=== PATIENT | female | born 1945 | race Caucasian/White ===

== ENCOUNTER 2017-10-27 10:43 | Day surgery (SDC) | payer MEDICARE ==
[~2017-10-27] VITALS: Ht 157.5 cm; Wt 127.3 kg
[2017-10-27] MEDS ORDERED: LEVOTHYROXINE150 MCG PO (12:01)
[2017-10-27] MEDS ORDERED: LOVENOX150 MG/ML SC (12:01)
[2017-10-27] MEDS ORDERED: FUROSEMIDE20 MG PO (12:02)
[2017-10-27] MEDS ORDERED: NORVASC10 MG PO (12:02)
[2017-10-27] MEDS ORDERED: GLIMEPIRIDE1 MG PO (12:03)
[2017-10-27] MEDS ORDERED: TIROSINT137 MCG PO (12:03)
[2017-10-27] MEDS ORDERED: KLOR-CON 1010 MEQ PO (12:03)
[2017-10-27] MEDS ORDERED: COUMADIN5 MG PO (12:04)
[2017-10-27] MEDS ORDERED: OMEPRAZOLE20 M1 PO (12:04)
[2017-10-27] MEDS ORDERED: ZOCOR20 MG PO (12:04)
[2017-10-27 12:11] VITALS: BP 161/71; Ht 157.5 cm; Wt 127.3 kg
[2017-10-27 12:15] LABS: BASOPHILS 0.2 % (0-2); EOSINOPHILS 1.9 % (0-7); HEMATOCRIT 35.9 % (36.0-48.0); HEMOGLOBIN 11.2 g/dL (12-16); IMMATURE GRANULOCYTES 0.6 % (0-5); LYMPHOCYTES 16.7 % (15-50); MCH 28.3 pg (26.0-34.0); MCHC 31.2 g/dL (31.0-37.0); MCV 90.7 fL (80.0-100.0); MEAN PLATELET VOLUME 10.9 fL (7.4-10.4); NEUTROPHILS 72.6 % (40-80); PLATELET COUNT 176 10x3/uL (130-400); RBC 3.96 10x6/uL (4.00-5.40); RDW 16.5 % (11.5-14.5); WBC 5.4 10x3/uL (4.8-10.8)
[2017-10-27 12:16] LABS: PROTIME 12.8 SECONDS (11.6-15.0)
[2017-10-27 12:27] LABS: ANION GAP 12.1 mmol/L (8-16); CALCIUM 9.4 mg/dL (8.5-10.1); CARBON DIOXIDE 28.5 mmol/L (21.0-32.0); CREATININE - SERUM 0.9 mg/dL (0.6-1.3); POTASSIUM - SERUM 3.6 mmol/L (3.5-5.1)
--- NOTE | 2017-10-27 13:32 | NUR ---
ASCENDING POLYP X 1 WITH HEMOCLIP.
--- NOTE | 2017-10-27 16:32 | NUR ---
1445--IV DC'D, PT UP TO DRESS. URIEL GIBSON 1500--DISCHARGE INSTRUCTIONS GIVEN, PT VERBALIZES UNDERSTANDING. PT OFF UNIT VIA WC. URIEL GIBSON
--- NOTE | 2017-10-27 17:54 | OP ---
PATIENT NAME: MENG XIE MEDICAL RECORD: [id number] :43 [facility] DATE: SURGEON: ROBERT SWANSON DO DATE OF OPERATION: 10/27/2017 PROCEDURE: Colonoscopy with polypectomy. INDICATIONS FOR PROCEDURE: Diverticular disease, history of colon polyps, screening for colorectal cancer. SCOPE: [employer] video pediatric colonoscope. MEDICATIONS: Propofol 450 mg IV per anesthesia. WITHDRAWAL TIME: 16 minutes. ESTIMATED BLOOD LOSS: Minimal. COMPLICATIONS: None. FINDINGS: Informed consent was given. The patient was made comfortable with the above medication. After reaching an adequate level of sedation by slow IV push, the patient was placed on her left side. A digital rectal examination was performed and was normal. The endoscope was then advanced under direct visualization through the rectum to the cecum with visualization of the appendiceal orifice and ileocecal valve. The scope was slowly withdrawn and mucosa was carefully examined. The prep quality was good. In the cecum, there were 3 benign-appearing sessile polyps, which measured approximately 3-4 mm in size. They were all removed using hot forceps in 1 piece and completely retrieved. In the ascending colon, there were two benign-appearing sessile polyps, which ranged from 3-4 mm in size. They were both removed using hot forceps. One of these polyps had some residual bleeding, so a single endoclip was placed successfully to stop the bleeding. This maneuver was successful. There was evidence of some diverticula in the left side of the colon near the anastomosis from the previous colon resection. The anastomosis appeared healthy and normal. A single polyp was identified in conjunction with the ileocecal valve. This has been biopsied in the past and confirmed to be lipomatous, so no biopsies were taken. Retroflexion was performed in the rectum with visualization of small nonbleeding internal hemorrhoids. The endoscope was then withdrawn from the patient. The patient tolerated the procedure well and there were no complications. IMPRESSIONS: 1. Five separate polyps as described above removed using hot forceps. One of these sites had some residual bleeding, so a single endoclip was placed for hemostasis successfully. 2. Diverticulosis of the left side of the colon near the anastomotic region. 3. Evidence of prior intervention including a partial resection due to diverticular disease. 4. Lipoma involving the ileocecal valve. 5. Small nonbleeding internal hemorrhoids. PLAN AND RECOMMENDATIONS: 1. Discharge home when recovery parameters are met. 2. High fiber diet. OPERATIVE REPORT [id number] MENG XIE 3. Continue current medications. 4. No anti-inflammatories for 14 days. 5. Okay to resume Coumadin. 6. Recall colonoscopy in 3 years for continued surveillance of polyps. TRANSINT:[id number] Voice Confirmation ID: [id number] DOCUMENT ID: [id number] ROBERT SWANSON DO at 1754 CC: [id number] DICTATION DATE: 10/27/17 1349 TRACK CAR OPERATOR: 10/27/[address] [facility] 10/27/17 [facility] [address] [place] [address]
== END 2017-10-27 15:00 | disposition home or self-care (01) ==
LOC: D.OPS 10:43
PROVIDERS: Anesthesiology; Internal Medicine Gastroenterology
DX: K57.30 Diverticulosis of large intestine without perforation or abscess without bleeding (principal); K63.5 Polyp of colon; D12.2 Benign neoplasm of ascending colon; D17.79 Benign lipomatous neoplasm of other sites; K64.8 Other hemorrhoids; Z01.812 Encounter for preprocedural laboratory examination

== ENCOUNTER 2019-03-15 07:11 | Inpatient (IN) | payer MEDICARE ==
[2019-03-15] VITALS (14 sets, daily range): BP systolic 118–140; BP diastolic 61–83; BMI 53.2; BMI 54.1
[~2019-03-15] VITALS: Ht 157.5 cm; Wt 143.0 kg
--- NOTE | ~2019-03-15 | HEMODYNAMI ---
PATIENT:MENG XIE MEDICAL RECORD: [id number] : 43 [id number] ADMISSION DATE: 03/15/19 Generatedon:03/16/201914:08 Patient name: MENG XIE Patient #: [id number] SSN: : 1945 Date of study: 03/16/2019 Page: Of Hemodynamic Procedure Report Patient Data Patient Demographics Procedure consent was obtained First Name: MENG Gender: Female Last Name: ANNE-MARIE : 1945 Middle Initial: M Age: 73 year(s) Patient #: [id number] Race: Unknown Additional ID: [id number] Contact details Address: [address] [place] [address] State: [place] City: [place] Zip code: [address] Admission Admission Data Admission Date: 03/15/2019 Admission Time: 11:23 Room #: [facility] Height (in.): 62 BSA: 2.24 (m2) Height (cm.): 157.48 BMI: 53.04 (kg/m2) Weight (lbs.): 290 Weight (kg.): 131.54 Procedure Procedure Types Cath Procedure Peripheral Cath Diagnostic Procedure Miscellaneous Procedure Description Procedure Date Procedure Date: 03/16/2019 Procedure Start Time: 13:46 Procedure Staff Name Function Victoriano Zhang MD Performing Physician Sandro Coulter RT Monitor Sujata David RN Nurse Angel Frost RT Scrub Procedure Medications Medication Administration Route Dosage Heparin Flush Bag added to field 1 bags (1000units/500ml NS) Lidocaine 1% added to field 20 Hemodynamics Rest BSA: 2.24 (m2) O2 Consumption: Estimated: 206.29 (ml/min) O2 Consumption indexed : Estimated:92.09 (ml/min/m) Heart Rate: 73 (bpm) Snapshots Pre Cath Intra NCS Post Cath Vital Signs Time Heart Resp SPO2 etCO2 NIBP (mmHg) Rhythm Pain Sedation Rate (ipm) (%) (mmHg) Status Level (bpm) 13:40:04 100 0 158/88(108) NSR 0 (11) 10(A) , No pain 13:45:03 71 100 0 Measuring NSR 0 (11) 10(A) , No pain 13:46:27 70 16 100 0 Time NSR 0 (11) 10(A) Exceeded , No pain 13:50:16 74 8 100 0 90/53(79) NSR 0 (11) 10(A) , No pain 13:53:57 76 19 100 0 Time NSR 0 (11) 10(A) Exceeded , No pain 13:57:20 81 15 100 0 140/128(137) NSR 0 (11) 10(A) , No pain 14:00:08 77 15 100 0 189/83(138) NSR 0 (11) 10(A) , No pain 14:04:08 16 0 No Cuff NSR 0 (11) 10(A) , No pain Medications Time Medication Route Dose Verified Delivered Reason Notes Effe ctiveness by by 13:48:24 Heparin Flush added 1 M J Long M J Long used for Bag to bags MD GRANADO procedure (1000units/500ml field NS) 13:48:41 Lidocaine 1% added 20ml M J Long M J Long for local to vial MD GRANADO anesthetic field Procedure Log Time Note 13:00:45 Patient Height : 62 inches 13:00:45 Patient Weight : 290 lbs 13:31:47 Sujata David RN sent for patient. Start room use. 13:32:01 Time tracking: Regular hours (M-F 7:00 - 5:00) 13:32:13 Plan of Care:Hemodynamics will remain stable., Cardiac rhythm will remain stable., Comfort level will be maintained., Respiratory function will remain adequate., Patient/ family verbilizes understanding of procedure., Procedure tolerated without complication., Recovers from procedure without complications.. 13:32:24 Patient received from ICU to IR Alert and oriented. Tansferred to table in Supine position. 13:32:28 Correct patient and procedure confirmed by team. 13:32:39 Signed procedure consent form obtained from spouse. 13:32:43 ECG and BP/O2 sat monitors applied to patient. 13:32:47 Full Disclosure recording started 13:32:49 - 13:32:57 H&P Date Dictated: 03/16/2019 Within 30 days and on chart.. 13:33:36 Unable to provide pre-op teaching due to educational barrier. patient o n vent dipravan drip 13:33:56 pt unable to answer any preprocedure diagnosis 13:34:21 Right groin area was prepped with chlora-prep and draped in sterile fashion 13:34:23 Alarms reviewed by R. N. 13:34:23 Sharps counted by scrub and verified by R.N. 13:38:39 Vital chart was started 13:38:40 Baseline sample Acquired. 13:46:06 Physician arrived 13:46:07 --------ALL STOP TIME OUT------ 13:46:07 Final Timeout: patient, procedure, and site verified with staff and physician. All members of the team are in agreement. 13:46:10 Right groin site verified by team. 13:46:20 Sedation plan: Local Anesthetic Medication:Lidocaine 13:46:24 Fire Safety Assessment: A--An alcohol-based skin anteseptic being used preoperatively., C--Open oxygen or nitrous oxide is being used. 13:46:37 Procedure started. 13:46:45 Local anesthetic to right femoral artery with Lidocaine 1% by Victoriano Zhang MD.INITIAL ACCESS ONLY 13:48:07 Baseline sample Acquired. 13:48:17 JACKSON 180cm wire (L95095) opened to sterile field. 13:48:24 Heparin Flush Bag (1000units/500ml NS) 1 bags added to field was administered by Victoriano Zhang MD; used for procedure; 13:48:41 Lidocaine 1% 20ml vial added to field was administered by Victoriano Zhang MD; for local anesthetic; 13:52:59 Use device set IR Diagnostic 13:53:01 EXOSEAL 5Fr (EX500) opened to sterile field. 13:53:03 Sterile Angiographic Pack opened to sterile field. 13:53:03 Bag Decanter (2002S) opened to sterile field. 13:53:04 Tegaderm 4 x 4 (1626W) opened to sterile field. 13:53:11 SHEATH 5FR Sewell (FOH357) opened to sterile field. 13:53:22 Procedure ended.(Physican Out) 14:04:02 Sharps counted by scrub and verified by R.N. 14:04:03 Insertion/operative site no bleeding no hematoma. 14:04:07 Post-op/insertion site Right Femoral artery dressed using a 4 x 4 and Tegaderm. 14:04:11 Post right femoral artery:stable 14:04:14 Procedure and supply charges have been captured, reviewed, submitted an d are correct. 14:07:46 Report given to ICU. 14:07:49 Patient transfered to ICU with Bed. 14:08:15 Vital chart was stopped Device Usage Item Name Manufacture Quantity Catalog Hospital Part Current Minimal Lot# / Number Charge Number Stock Stock Serial# Code JACKSON 180cm Cook Medical 1 [id number] [id number] 5 wire ([id number]) EXOSEAL 5Fr Cardinal 1 EX500 401909 314015 713372 10 [id number] (EX500) Health Sterile Cardinal 1 [id number] 687850 695852 5 Angiographic Health Pack Bag Decanter Microtek 1 2002S 929144 69485 981095 5 (2001S) Medical Inc. Tegaderm 4 x 3M 1 1626W 346035 624467 094902 5 4 (1626W) SHEATH 5FR Terumo 1 KUI943 931076 175960 024701 5 Sewell (ERP948) Signature Audit [place] Stage Time Signature Unsigned Intra-Procedure 03/16/2019 Sandro 2:08:11 PM Marylin RT (R) (CV) Signatures Monitor : Sandro Signature : Marylin RT Date : Time : [facility] [address] [place] [address]
--- NOTE | ~2019-03-15 | HEMODYNAMI ---
PATIENT:MENG XIE MEDICAL RECORD: [id number] : 41 [address] [id number] ADMISSION DATE: 03/15/19 Generatedon:03/15/201915:32 Patient name: MENG XIE Patient #: [id number] SSN: : 1945 Date of study: 03/15/2019 Page: Of Hemodynamic Procedure Report Patient Data Patient Demographics Procedure consent was obtained First Name: MENG Gender: Female Last Name: ANNE-MARIE : 1945 Middle Initial: M Age: 73 year(s) Patient #: [id number] Race: Unknown Additional ID: [id number] Contact details Address: [address] [place] [address] State: [place] City: [place] Zip code: [address] Admission Admission Data Admission Date: 03/15/2019 Admission Time: 11:23 Room #: [facility] Height (in.): 62 BSA: 2.24 (m2) Height (cm.): 157.48 BMI: 53.04 (kg/m2) Weight (lbs.): 290 Weight (kg.): 131.54 Procedure Procedure Types Cath Procedure Peripheral Cath Diagnostic Procedure Auto Driver Peripheral Procedures Abd/Extremity Visceral/Mesenteric Mesenteric Arteriogram (Abd Artery) Procedure Description Procedure Date Procedure Date: 03/15/2019 Procedure Start Time: 13:30 Procedure Staff Name Function Juan Antonio Beckett MD Performing Physician Kristy Gan RT Commercial Mortgage Broker Sujata David RN Nurse Sandro Coulter RT Scrub Angel Frost RT Scrub Procedure Data Cath Procedure Fluoroscopy Diagnostic fluoroscopy Total fluoroscopy Time: time: 27.6 min 27.6 min Diagnostic fluoroscopy Total fluoroscopy dose: dose: 5884 mGy 5884 mGy Contrast Material Contrast Material Type Amount (ml) Isovue 300 220 Isovue 300 220 Procedure Medications Medication Administration Route Dosage Heparin Flush Bag added to field 3 bags (1000units/500ml NS) Lidocaine 1% added to field 20 Benadryl I.V. 50 mg Solumedrol I.V. 125 mg Hemodynamics Rest BSA: 2.24 (m2) O2 Consumption: Estimated: 197.52 (ml/min) O2 Consumption indexed : Estimated:88.18 (ml/min/m) Heart Rate: 63 (bpm) Snapshots Pre Cath Intra NCS Post Cath Vital Signs Time Heart Resp SPO2 etCO2 NIBP (mmHg) Rhythm Pain Sedation Rate (ipm) (%) (mmHg) Status Level (bpm) 13:05:25 63 5 99 0 140/120(133) NSR 0 (11) 10(A) , No pain 13:09:34 63 37 100 0 149/87(108) NSR 0 (11) 10(A) , No pain 13:13:44 62 21 100 0 144/100(114) NSR 0 (11) 10(A) , No pain 13:17:54 62 16 100 0 148/88(117) NSR 0 (11) 10(A) , No pain 13:22:08 61 12 100 0 148/82(105) NSR 0 (11) 10(A) , No pain 13:26:22 63 9 100 0 142/82(102) NSR 0 (11) 10(A) , No pain 13:30:36 62 5 100 0 134/77(96) NSR 0 (11) 10(A) , No pain 13:34:48 63 6 100 0 136/72(106) NSR 0 (11) 10(A) , No pain 13:39:04 61 12 100 0 128/59(82) NSR 0 (11) 10(A) , No pain 13:43:14 61 100 0 124/72(91) NSR 0 (11) 10(A) , No pain 13:47:24 62 100 0 122/70(95) NSR 0 (11) 10(A) , No pain 13:51:32 62 22 100 0 117/73(86) NSR 0 (11) 10(A) , No pain 13:56:31 61 21 100 0 Measuring NSR 0 (11) 10(A) , No pain 13:57:41 62 14 100 0 163/89(139) NSR 0 (11) 10(A) , No pain 14:02:00 62 13 100 0 157/81(129) NSR 0 (11) 10(A) , No pain 14:06:19 62 12 100 0 145/77(102) NSR 0 () 10(A) , No pain 14:10:33 62 12 100 0 153/77(114) NSR 0 () 10(A) , No pain 14:14:53 64 16 100 0 149/70(119) NSR 0 (11) 10(A) , No pain 14:19:09 64 16 100 0 147/75(106) NSR 0 () 10(A) , No pain 14:23:25 64 12 100 0 157/72(103) NSR 0 () 10(A) , No pain 14:28:24 64 13 100 0 Measuring NSR 0 () 10(A) , No pain 14:28:30 64 14 100 0 143/69(98) NSR 0 () 10(A) , No pain 14:32:46 65 16 100 0 147/69(123) NSR 0 () 10(A) , No pain 14:37:06 65 14 100 0 141/60(97) NSR 0 () 10(A) , No pain 14:41:22 66 16 100 0 148/68(110) NSR 0 () 10(A) , No pain 14:45:40 66 17 100 0 140/70(107) NSR 0 () 10(A) , No pain 14:49:54 67 20 100 0 147/68(115) NSR 0 () 10(A) , No pain 14:54:12 66 16 100 0 157/65(110) NSR 0 () 10(A) , No pain 14:58:34 65 17 100 0 149/66(94) NSR 0 () 10(A) , No pain 15:02:53 65 13 100 0 150/71(118) NSR 0 () 10(A) , No pain 15:07:07 64 16 100 0 148/81(119) NSR 0 (11) 10(A) , No pain 15:11:27 63 19 100 0 154/63(117) NSR 0 (11) 10(A) , No pain 15:15:49 64 13 100 0 156/63(120) NSR 0 (11) 10(A) , No pain 15:20:11 65 16 100 0 155/65(118) NSR 0 (11) 10(A) , No pain 15:24:33 63 16 100 0 157/64(113) NSR 0 (11) 10(A) , No pain 15:28:55 63 14 100 0 150/66(115) NSR 0 (11) 10(A) , No pain Medications Time Medication Route Dose Verified Delivered Reason Notes Effe ctiveness by by 13:27:41 Heparin Flush added 3 Juan Antonio Romano used for Bag to bags Sophy Beckett MD procedure (1000units/500ml field NS) 13:27:54 Lidocaine 1% added 20ml Juan Antonio Romano for local to vial Sophy Beckett MD anesthetic field MD 13:41:28 Benadryl I.V. 50 mg Juan Antonio Ernst Per Frankie Beckett RN physician 13:42:08 Solumedrol I.V. 125 Juan Antonio Ernst Per mg Frankie Beckett RN physician Procedure Log Time Note 12:36:33 Patient Weight : 290 lbs 12:36:38 Patient Height : 62 inches 12:37:36 Use device set Radial Dx or PCI 12:37:49 Use device set IR Diagnostic 12:37:54 ACIST Syringe (14080) opened to sterile field. 12:37:55 ACIST Hand Control (54190) opened to sterile field. 12:37:56 ACIST Manifold (63985) opened to sterile field. 12:37:56 Bag Decanter (2002S) opened to sterile field. 12:37:57 Sterile Angiographic Pack opened to sterile field. 12:37:58 Tegaderm 4 x 4 (1626W) opened to sterile field. 12:47:29 DOC .035 wire (L71955) opened to sterile field. 12:47:31 SHEATH 5FR Trent (FQN339) opened to sterile field. 12:47:31 TUBING Contrast Injection High Pressure (NQE692X) opened to sterile field. 12:47:34 Micropuncture VSI 4FR kit opened to sterile field. 12:55:09 Time tracking: Regular hours (M-F 7:00 - 5:00) 12:56:39 Patient received from ICU to IR On ventilator. Tansferred to table in Supine position. 12:56:44 - 12:56:49 H&P Date Dictated: 03/15/2019 Within 30 days and on chart.. 12:57:06 Signed procedure consent form obtained from guardian. 12:58:15 - 12:58:23 ----Pre-sedation anethsthesia assessment.----patient on ventilator 13:03:06 - 13:03:40 Right groin area was prepped with chlora-prep and draped in sterile fashion 13:04:18 ECG and BP/O2 sat monitors applied to patient. 13:04:19 Vital chart was started 13:04:21 Baseline sample Acquired. 13:04:24 Full Disclosure recording started 13:04:25 - 13:26:01 Physician arrived 13:26:04 --------ALL STOP TIME OUT------ 13:26:05 Final Timeout: patient, procedure, and site verified with staff and physician. All members of the team are in agreement. 13:27:41 Heparin Flush Bag (1000units/500ml NS) 3 bags added to field was administered by Juan Antonio Beckett MD; used for procedure; 13:27:54 Lidocaine 1% 20ml vial added to field was administered by Juan Antonio Beckett MD; for local anesthetic; 13:28:51 pt on vent from icu on propofol ggt. vs stable 13:30:04 Procedure started. 13:30:10 Local anesthetic to right femoral artery with Lidocaine 1% by Juan Antonio Beckett MD.INITIAL ACCESS ONLY 13:31:09 Arterial access obtained using ultrasound guidance. 13:40:47 GLIDE CATHETER 5FR COBRA 65cm (CG502) opened to sterile field. 13:41:04 AMPLATZ Super Stiff 75cm wire ([id number]) opened to sterile field. 13:41:28 Benadryl 50 mg I.V. was administered by Sujata David RN; Per physician ; 13:42:08 Solumedrol 125 mg I.V. was administered by Sujata David RN; Per physician; 13:44:22 GLIDE WIRE ANGLE 180cm (AQ9897) opened to sterile field. 13:44:30 TORQUE DEVICE PLASTIC .038 ( TD01) opened to sterile field. 14:04:30 TRANSEND STEERABLE wire ([id number]) opened to sterile field. 14:04:32 RENEGADE STAIGHT 150CM microcatheter ([id number]) opened to sterile field. 14:12:59 COIL Vortex Katya 18 3X3 ([id number]) opened to sterile field. 14:13:41 COIL Vortex Katya 18 3X3 (H1121806918) opened to sterile field. 14:16:18 COIL Vortex Katya 18 3X3 ([id number]) opened to sterile field. 14:18:47 IDL Instant Casing Wringer Operator (ID1) opened to sterile field. 14:18:59 COIL Concerto 4mm x 10cm ([id number]) opened to sterile field. 14:22:43 COIL Concerto 5 x 20 (JL30MOBNG) opened to sterile field. 14:30:12 GLIDE WIRE GT DOUBLE ANGLE .018 (RG*SC6276EJ) opened to sterile field. 14:39:30 COIL Concerto 5 x 20 (OB56ELGER) opened to sterile field. 15:04:34 COIL Vortex Katya 18 3X3 ([id number]) opened to sterile field. 15:09:34 Cordis 5Fr Trent Destination sheath opened to sterile field. 15:15:09 SUTURE ETHILON 2-0 BLK MONO FS opened to sterile field. 15:16:03 Fluoroscopy dose: 5884 mGy 15:16:03 Flurop Dose total: 5884 15:16:24 Fluoroscopy time 27.60 minutes. 15:16:41 Contrast amount:Isovue 300 220ml. 15:16:49 Contrast amount:Isovue 300 220ml. 15:16:56 Procedure and supply charges have been captured, reviewed, submitted an d are correct. 15:20:19 Procedure ended.(Physican Out) 15:32:03 Vital chart was stopped Device Usage Item Name Manufacture Quantity Catalog Number Hospital Part Current Tx nimpr Lot# / Charge Number Stock Stock Serial# Code ACIST Syringe Acist 1 21621 950808 166547 797917 20 (65988) Medical Systems Inc ACIST Hand Acist 1 89887 837873 238557 772512 5 Control Medical (59950) Systems Inc ACIST Acist 1 93935 231186 222385 922015 5 Manifold Medical (40308) Systems Inc Bag Decanter Microtek 1 2001S 487525 27471 798757 5 (2001S) Medical Inc. Sterile Cardinal 1 [id number] 823255 940726 5 Angiographic Health Pack Tegaderm 4 x 3M 1 1626W 854877 069939 644045 5 4 (1626W) DOC .035 wire Cook Medical 1 X82118 887320 920521 5 (C29318) SHEATH 5FR Terumo 1 CGK255 990884 821044 907841 5 Trent (UQW840) TUBING Merit 1 LSW360K 007453 152443 057212 5 Contrast Medical Injection High Pressure (QBC690D) Micropuncture VSI VASCULAR 1 7266V 213855 222974 5 VSI 4FR kit SOLUTIONS GLIDE Terumo 1 CG502 819393 471942 5 CATHETER 5FR COBRA 65cm (CG502) AMPLATZ Super Boss 1 [id number] 426420 532815 555034 5 Stiff 75cm Scientific wire ([id number]) GLIDE WIRE Terumo 1 UI4976 561511 313571 280168 5 ANGLE 180cm (MA8568) TORQUE DEVICE Boss 1 TD01 624842 369617 287026 5 PLASTIC .038 Scientific ( TD01) TRANSEND Boss 1 [id number] 053040 673377 5 [id number] STEERABLE Scientific wire ([id number]) RENEGADE Boss 1 [id number] 275043 645142 5 [id number] STAIGHT 150CM Scientific microcatheter ([id number]) COIL Vortex [facility] 3 [id number] 599916 566799 5 [id number] Katya 18 [id number] 3X3 37220773 ([id number]) IDL Instant B. Fragoso 1 ID-1 [id number] 0333331 317957 5 Casing Wringer Operator (ID1) COIL Appointuito Medtronic 1 QK-6-78-HELIX 294675 881559 224993 5 [id number] 4mm x 10cm ([id number]) COIL Concerto Medtronic 1 AS-1-2-HELIX 185825 723793 909064 5 [id number] 5 x 20 ([id number]) GLIDE WIRE GT Terumo 1 RG*BQ9588FM 657371 680152 5 DOUBLE ANGLE .018 (RG*QP8088KC) Cordis 5Fr Cardinal 1 [id number] 107778 34402 455275 5 [facility] Destination sheath SUTURE Ethicon 1 664H 445150 402451 5 ETHILON 2-0 BLK MONO FS Signature Audit [place] Stage Time Signature Unsigned Intra-Procedure 03/15/2019 Kristy Gan 3:32:00 PM RT(R) [facility] [address] [place] [address]
[~2019-03-15 07:11] MED LIST: COUMADIN5 MG PO; FUROSEMIDE20 MG PO; GLIMEPIRIDE1 MG PO; KLOR-CON 1010 MEQ PO; LEVOTHYROXINE150 MCG PO; LOVENOX150 MG/ML SC; NORVASC10 MG PO; OMEPRAZOLE20 M1 PO; TIROSINT137 MCG PO; ZOCOR20 MG PO
[2019-03-15 07:27] LABS: HEMATOCRIT 41.4 % (36.0-48.0); HEMOGLOBIN 13.5 g/dL (12-16); MCHC 32.6 g/dL (31.0-37.0); MEAN PLATELET VOLUME 10.4 fL (7.4-10.4); RBC 4.5 10x6/uL (4.00-5.40); RDW 16.4 % (11.5-14.5); WBC 9.6 10x3/uL (4.8-10.8)
[2019-03-15 07:35] LABS: ANION GAP 7.8 mmol/L (8-16); CALCIUM 9.8 mg/dL (8.5-10.1); CARBON DIOXIDE 31.4 mmol/L (21.0-32.0); CREATININE - SERUM 1.1 mg/dL (0.6-1.3); POTASSIUM - SERUM 4.2 mmol/L (3.5-5.1)
[2019-03-15] MEDS ORDERED: LOPRESSOR25 MG PO (08:37)
[2019-03-15] MEDS ORDERED: COUMADIN2.5 MG PO (08:39)
[2019-03-15 12:24] LABS: BASOPHILS 0.2 % (0-2); EOSINOPHILS 0.1 % (0-7); HEMATOCRIT 37.8 % (36.0-48.0); HEMOGLOBIN 12.4 g/dL (12-16); IMMATURE GRANULOCYTES 0.3 % (0-5); LYMPHOCYTES 14.5 % (15-50); MCHC 32.8 g/dL (31.0-37.0); MCV 92.6 fL (80.0-100.0); MEAN PLATELET VOLUME 10.6 fL (7.4-10.4); MONOCYTES 6.4 % (2-11); NEUTROPHILS 78.5 % (40-80); PLATELET COUNT 208 10x3/uL (130-400); RBC 4.08 10x6/uL (4.00-5.40); RDW 16.4 % (11.5-14.5); WBC 10.3 10x3/uL (4.8-10.8)
[2019-03-15 12:31] LABS: MCH 30.5 pg (26.0-34.0)
[2019-03-15 12:32] LABS: APTT 23.9 SECONDS (22.8-39.4); INR 1.09 (0.85-1.17); PROTIME 13.6 SECONDS (11.6-15.0)
[2019-03-15 17:48] LABS: ANION GAP 12.2 mmol/L (8-16); CALCIUM 8.5 mg/dL (8.5-10.1); CREATININE - SERUM 1.1 mg/dL (0.6-1.3); POTASSIUM - SERUM 4.2 mmol/L (3.5-5.1)
[2019-03-15 17:54] LABS: BASOPHILS 0.1 % (0-2); EOSINOPHILS 0 % (0-7); HEMATOCRIT 31.1 % (36.0-48.0); HEMOGLOBIN 9.8 g/dL (12-16); IMMATURE GRANULOCYTES 0.2 % (0-5); LYMPHOCYTES 5.2 % (15-50); MCH 28.9 pg (26.0-34.0); MCHC 31.5 g/dL (31.0-37.0); MCV 91.7 fL (80.0-100.0); MEAN PLATELET VOLUME 11.1 fL (7.4-10.4); NEUTROPHILS 90.5 % (40-80); PLATELET COUNT 183 10x3/uL (130-400); RBC 3.39 10x6/uL (4.00-5.40); RDW 16.4 % (11.5-14.5); WBC 12.6 10x3/uL (4.8-10.8)
[2019-03-15 23:03] LABS: BASOPHILS 0 % (0-2); EOSINOPHILS 0 % (0-7); IMMATURE GRANULOCYTES 0.3 % (0-5); LYMPHOCYTES 5.2 % (15-50); MCH 29.6 pg (26.0-34.0); MCHC 32.4 g/dL (31.0-37.0); MCV 91.5 fL (80.0-100.0); MEAN PLATELET VOLUME 10.7 fL (7.4-10.4); MONOCYTES 2.3 % (2-11); NEUTROPHILS 92.2 % (40-80); PLATELET COUNT 161 10x3/uL (130-400); RDW 16.6 % (11.5-14.5); WBC 14.4 10x3/uL (4.8-10.8)
[2019-03-15 23:06] LABS: HEMATOCRIT 23.8 % (36.0-48.0); HEMOGLOBIN 7.7 g/dL (12-16)
[2019-03-15 23:17] LABS: ANION GAP 12.7 mmol/L (8-16); CALCIUM 8.1 mg/dL (8.5-10.1); CARBON DIOXIDE 26.5 mmol/L (21.0-32.0); CREATININE - SERUM 1.1 mg/dL (0.6-1.3); POTASSIUM - SERUM 4.2 mmol/L (3.5-5.1)
[2019-03-16] VITALS (30 sets, daily range): BP systolic 86–163; BP diastolic 42–97; BMI 54.0
[2019-03-16 05:01] LABS: BASOPHILS 0 % (0-2); EOSINOPHILS 0 % (0-7); HEMATOCRIT 25.9 % (36.0-48.0); HEMOGLOBIN 8.6 g/dL (12-16); IMMATURE GRANULOCYTES 0.5 % (0-5); LYMPHOCYTES 4.7 % (15-50); MCHC 33.2 g/dL (31.0-37.0); MCV 90.2 fL (80.0-100.0); MEAN PLATELET VOLUME 10.8 fL (7.4-10.4); MONOCYTES 4.4 % (2-11); NEUTROPHILS 90.4 % (40-80); PLATELET COUNT 186 10x3/uL (130-400); RBC 2.87 10x6/uL (4.00-5.40); RDW 16.7 % (11.5-14.5); WBC 14.2 10x3/uL (4.8-10.8)
[2019-03-16 05:12] LABS: ANION GAP 13.6 mmol/L (8-16); CALCIUM 7.9 mg/dL (8.5-10.1); CARBON DIOXIDE 24.4 mmol/L (21.0-32.0); CREATININE - SERUM 1.1 mg/dL (0.6-1.3)
[2019-03-16 10:35] LABS: BASOPHILS 0 % (0-2); EOSINOPHILS 0 % (0-7); HEMATOCRIT 23.8 % (36.0-48.0); HEMOGLOBIN 7.9 g/dL (12-16); IMMATURE GRANULOCYTES 0.5 % (0-5); LYMPHOCYTES 4.4 % (15-50); MCH 29.8 pg (26.0-34.0); MCHC 33.2 g/dL (31.0-37.0); MCV 89.8 fL (80.0-100.0); MEAN PLATELET VOLUME 10.1 fL (7.4-10.4); MONOCYTES 8.7 % (2-11); NEUTROPHILS 86.4 % (40-80); PLATELET COUNT 172 10x3/uL (130-400); RBC 2.65 10x6/uL (4.00-5.40); RDW 17.1 % (11.5-14.5); WBC 15.4 10x3/uL (4.8-10.8)
[2019-03-16 10:42] LABS: ANION GAP 12.4 mmol/L (8-16); CALCIUM 7.9 mg/dL (8.5-10.1); CARBON DIOXIDE 23.3 mmol/L (21.0-32.0); POTASSIUM - SERUM 3.7 mmol/L (3.5-5.1)
[2019-03-16 12:47] LABS: HEMOGLOBIN 7.7 g/dL (12-16)
[2019-03-16 17:26] LABS: CALC OSMOLALITY 293 mosm/kg (275-300); CALCIUM 9.5 mg/dL (8.5-10.1); CARBON DIOXIDE 24.8 mmol/L (21.0-32.0); CHLORIDE - SERUM 110 mmol/L (98-107); CKMB 0.4 U/L (0.0-3.6); CREATINE KINASE 19 UL (21-215); CREATININE - SERUM 0.9 mg/dL (0.6-1.3); GLUCOSE 186 mg/dL (74-106); POTASSIUM - SERUM 3.3 mmol/L (3.5-5.1); SODIUM 143 mmol/L (136-145); TROPONIN-I < 0.017 ng/mL (0.000-0.060); UREA NITROGEN 25 mg/dL (7-18); eGFR NON AFRICAN AMERICAN 65 mL/min (90-120)
[2019-03-16 18:07] LABS: LYMPHOCYTES 11 % (15-50); MONOCYTES 3 % (2-11); NEUTROPHILS 85 % (40-80)
[2019-03-16 18:13] LABS: BASOPHILS 0.1 % (0-2); EOSINOPHILS 0 % (0-7); HEMATOCRIT 25.8 % (36.0-48.0); HEMOGLOBIN 8.4 g/dL (12-16); IMMATURE GRANULOCYTES 0.7 % (0-5); MCH 29.3 pg (26.0-34.0); MCHC 32.6 g/dL (31.0-37.0); MCV 89.9 fL (80.0-100.0); MEAN PLATELET VOLUME 10.7 fL (7.4-10.4); PLATELET COUNT 163 10x3/uL (130-400); RBC 2.87 10x6/uL (4.00-5.40); RDW 16.5 % (11.5-14.5); WBC 15.1 10x3/uL (4.8-10.8)
[2019-03-16 22:50] LABS: BASOPHILS 0.1 % (0-2); EOSINOPHILS 0 % (0-7); HEMATOCRIT 23.6 % (36.0-48.0); HEMOGLOBIN 7.9 g/dL (12-16); IMMATURE GRANULOCYTES 0.7 % (0-5); LYMPHOCYTES 9.2 % (15-50); MCH 30.3 pg (26.0-34.0); MCHC 33.5 g/dL (31.0-37.0); MCV 90.4 fL (80.0-100.0); MEAN PLATELET VOLUME 10.6 fL (7.4-10.4); MONOCYTES 9.5 % (2-11); NEUTROPHILS 80.5 % (40-80); PLATELET COUNT 144 10x3/uL (130-400); RBC 2.61 10x6/uL (4.00-5.40); WBC 12.2 10x3/uL (4.8-10.8)
[2019-03-16 22:58] LABS: ANION GAP 10.2 mmol/L (8-16); CALCIUM 9.1 mg/dL (8.5-10.1)
[2019-03-16 22:59] LABS: POTASSIUM - SERUM 4.2 mmol/L (3.5-5.1)
[2019-03-17] VITALS (24 sets, daily range): BP systolic 84–149; BP diastolic 55–116
[2019-03-17 04:07] LABS: BASOPHILS 0 % (0-2); EOSINOPHILS 0.2 % (0-7); HEMATOCRIT 25.7 % (36.0-48.0); HEMOGLOBIN 8.5 g/dL (12-16); IMMATURE GRANULOCYTES 0.7 % (0-5); LYMPHOCYTES 8.4 % (15-50); MCH 29.9 pg (26.0-34.0); MCHC 33.1 g/dL (31.0-37.0); MCV 90.5 fL (80.0-100.0); MEAN PLATELET VOLUME 10.3 fL (7.4-10.4); MONOCYTES 8.3 % (2-11); NEUTROPHILS 82.4 % (40-80); PLATELET COUNT 122 10x3/uL (130-400); RBC 2.84 10x6/uL (4.00-5.40); RDW 16.5 % (11.5-14.5); WBC 10.7 10x3/uL (4.8-10.8)
[2019-03-17 04:25] LABS: ANION GAP 8.8 mmol/L (8-16); CALCIUM 9.2 mg/dL (8.5-10.1); POTASSIUM - SERUM 3.8 mmol/L (3.5-5.1)
[2019-03-17 14:00] LABS: HEMATOCRIT 26.7 % (36.0-48.0)
[2019-03-17 20:27] LABS: HEMATOCRIT 25.9 % (36.0-48.0); HEMOGLOBIN 8.7 g/dL (12-16)
[2019-03-18] VITALS (25 sets, daily range): BP systolic 106–148; BP diastolic 48–78
[2019-03-18 06:24] LABS: ANION GAP 12.4 mmol/L (8-16); CALCIUM 8.9 mg/dL (8.5-10.1); CARBON DIOXIDE 24.4 mmol/L (21.0-32.0); CREATININE - SERUM 0.8 mg/dL (0.6-1.3); POTASSIUM - SERUM 3.8 mmol/L (3.5-5.1)
[2019-03-18 06:36] LABS: BASOPHILS 0 % (0-2); EOSINOPHILS 0.7 % (0-7); HEMATOCRIT 27.5 % (36.0-48.0); HEMOGLOBIN 9.1 g/dL (12-16); IMMATURE GRANULOCYTES 1.1 % (0-5); LYMPHOCYTES 8.9 % (15-50); MCH 30.2 pg (26.0-34.0); MCHC 33.1 g/dL (31.0-37.0); MCV 91.4 fL (80.0-100.0); MEAN PLATELET VOLUME 10.6 fL (7.4-10.4); MONOCYTES 7.9 % (2-11); NEUTROPHILS 81.4 % (40-80); PLATELET COUNT 139 10x3/uL (130-400); RBC 3.01 10x6/uL (4.00-5.40); RDW 16.2 % (11.5-14.5); WBC 8.3 10x3/uL (4.8-10.8)
[2019-03-18 16:37] LABS: HEMATOCRIT 26.2 % (36.0-48.0); HEMOGLOBIN 8.7 g/dL (12-16)
[2019-03-19] VITALS (24 sets, daily range): BP systolic 115–152; BP diastolic 44–78
[2019-03-19 05:15] LABS: HEMATOCRIT 26.6 % (36.0-48.0); HEMOGLOBIN 8.7 g/dL (12-16)
[2019-03-19 05:34] LABS: ALKALINE PHOSPHATASE 64 U/L (46-116); ALT (SGPT) 20 U/L (10-68); BILIRUBIN - TOTAL 0.49 mg/dL (0.2-1.3); CALC OSMOLALITY 287 mosm/kg (275-300); CALCIUM 8.8 mg/dL (8.5-10.1); CARBON DIOXIDE 24.5 mmol/L (21.0-32.0); CHLORIDE - SERUM 112 mmol/L (98-107); CREATININE - SERUM 0.6 mg/dL (0.6-1.3); GLUCOSE 141 mg/dL (74-106); POTASSIUM - SERUM 3.6 mmol/L (3.5-5.1); PROTEIN - SERUM 5.1 g/dL (6.4-8.2); SODIUM 143 mmol/L (136-145); UREA NITROGEN 15 mg/dL (7-18); eGFR NON AFRICAN AMERICAN > 90 mL/min (90-120)
[2019-03-19 15:59] LABS: HEMATOCRIT 26.8 % (36.0-48.0); HEMOGLOBIN 8.9 g/dL (12-16)
[2019-03-19 16:15] LABS: APPEARANCE CLEAR (CLEAR); BILIRUBIN NEGATIVE (NEGATIVE); COLOR YELLOW (YELLOW); GLUCOSE NEGATIVE (NEGATIVE); KETONE NEGATIVE (NEGATIVE); NITRITE POSITIVE (NEGATIVE); PROTEIN 1+ mg/dL (NEGATIVE); SPECIFIC GRAVITY 1.015 (1.005-1.020); UROBILINOGEN NORMAL (NORMAL)
[2019-03-19 16:17] LABS: AMORPHOUS SEDIMENT <1+ /lpf (NONE SEEN); BACTERIA MODERATE /hpf (NONE SEEN)
[2019-03-19 23:47] LABS: HEMATOCRIT 25.2 % (36.0-48.0); HEMOGLOBIN 8.6 g/dL (12-16)
[2019-03-20] VITALS (17 sets, daily range): BP systolic 117–157; BP diastolic 55–84
[2019-03-20 05:55] LABS: HEMATOCRIT 26.6 % (36.0-48.0); HEMOGLOBIN 9.3 g/dL (12-16); MCH 31.8 pg (26.0-34.0); MCV 91.1 fL (80.0-100.0); MEAN PLATELET VOLUME 10.9 fL (7.4-10.4); NEUTROPHILS 79.1 % (40-80); PLATELET COUNT 129 10x3/uL (130-400); RBC 2.92 10x6/uL (4.00-5.40); WBC 5.5 10x3/uL (4.8-10.8)
[2019-03-20 06:05] LABS: ALBUMIN 1.8 g/dL (3.4-5.0); ALKALINE PHOSPHATASE 67 U/L (46-116); ALT (SGPT) 19 U/L (10-68); BILIRUBIN - TOTAL 0.35 mg/dL (0.2-1.3); CALC OSMOLALITY 282 mosm/kg (275-300); CALCIUM 8.6 mg/dL (8.5-10.1); CARBON DIOXIDE 26.3 mmol/L (21.0-32.0); CHLORIDE - SERUM 111 mmol/L (98-107); CREATININE - SERUM 0.6 mg/dL (0.6-1.3); GLUCOSE 118 mg/dL (74-106); POTASSIUM - SERUM 3.6 mmol/L (3.5-5.1); PROTEIN - SERUM 4.8 g/dL (6.4-8.2); SODIUM 142 mmol/L (136-145); eGFR NON AFRICAN AMERICAN > 90 mL/min (90-120)
[2019-03-20 06:06] LABS: UREA NITROGEN 11 mg/dL (7-18)
--- NOTE | 2019-03-20 06:59 | OP ---
PATIENT NAME: MENG XIE MEDICAL RECORD: [id number] :41 LOCATION:[facility] D.2313 ADMISSION DATE:03/15/19 SURGEON: ROBERT SWANSON DO DATE OF OPERATION: 03/15/2019 PROCEDURE: EGD with tumor removal, biopsies, hemostasis maneuvers. INDICATIONS FOR PROCEDURE: Anemia. SCOPE: Olympus video gastroscope. MEDICATIONS: See anesthesia report for full list of medications. The patient was given total IV anesthesia during the procedure. 760 mg of propofol was given IV per anesthesia. ESTIMATED BLOOD LOSS: Less than 10 mL. COMPLICATIONS: Continued bleeding that will require further intervention and inadvertent loss of a defective clip within the stomach itself. FINDINGS: Informed consent was given. The patient was made comfortable with the above medication. After reaching an adequate level of sedation by slow IV push, the patient was placed on her left side. The endoscope was advanced under direct visualization through the mouth to the second portion of the duodenum with ease. The entire esophagus appeared normal. At the GE junction, there were mild changes consistent with LA class A reflux-induced esophagitis. The endoscope was advanced into the stomach and retroflexed to view the cardia and fundus, which appeared normal. Through the fundus and body of the stomach, there were a few gastric polyps, which appeared benign and of the fundic gland type. The mucosa of the stomach did not appear abnormal. The endoscope was advanced to the antrum and prepyloric region where a large polyp/tumor was encountered. The tumor measured approximately 3.5 x 2.5 cm in size. It appeared somewhat hemorrhagic, but was not actively bleeding. There were a few ulcerated areas within the tumor itself. The tumor was somewhat elongated, but did have a semi-pedunculated base. With manipulation of the tumor, there was bleeding noted from the surface. The endoscope was advanced beyond the pylorus into the duodenum, which appeared normal down to the second portion. It was then withdrawn back into the stomach. Random cold forceps biopsies were taken to submit for histopathology and to rule out the presence of H. pylori. Next, the attention was turned to the tumor at the pylorus. Then, 2 cc of diluted 1:10,000 epinephrine was injected into the base of the polyp for hemostasis prior to removal and to slightly lift the polyp off the wall of the gastric wall for safety purposes. A hot snare was used using a pulse current to remove the polyp completely. After the polyp was snared away, there was rapid and apparent bleeding. For initial hemostasis, 4 clips were effectively placed on the site successfully and the bleeding significantly slowed and resolved. Another 1 cc times 2 was injected into the base for further hemostasis successfully. At this time, attention was moved to trying to remove a fifth, defective endoclip that came out of the catheter partially deployed. Multiple attempts with multiple devices were used to try to remove this endoclip. These devices include forceps, snares, Ty nets, 2 OR tubes. Nothing was able to successfully remove this endoclip due to the orientation that it would have to be removed with the endoscope and its risk for tearing the esophagus and/or upper and lower esophageal sphincters or perforating the mucosa. While spending approximately 30 minutes trying to remove this endoclip, the bleeding in the antrum/prepyloric OPERATIVE REPORT [id number] MENG XIE had resumed. For patient safety, attempts to remove this clip were abandoned. The polyp/tumor that was removed was grabbed with a net and withdrawn from the stomach through the mouth. The endoscope was placed back into the stomach and the site of the antrum was reevaluated. It was felt that no further endoscopic maneuvers would be successful at hemostasis. The endoscope was then withdrawn from the patient. At this time, both surgery and interventional radiology were reached to discuss options for hemostasis management. After discussions, it was felt that the safest approach and most reasonable initial approach should be admission to the ICU for vasopressor maneuvers and interventional radiology attempt to embolize the vessel if they are able to localize the bleeding site. If this fails, surgery is available for definitive management. The patient was intubated for protection of her airway and transferred to the ICU for further management and admission to the hospital. I did discuss all of this with the who was in agreement with the plan. Regarding the retained endoclip that was defective, this will be followed by serial x-ray examinations. The was informed that this may require further surgical intervention if it does not pass on its own, but we will monitor this situation. IMPRESSION: 1. Large prepyloric polyp/tumor removed via snare resection utilizing EMR technique with epinephrine and Eleview. 2. Gastric polyps. 3. Reflux esophagitis grade A. PLAN AND RECOMMENDATIONS: 1. As discussed above, the patient will be admitted to the intensive care unit for further intervention, which will include interventional radiology embolization if possible and possibly a surgical resection of the gastric antrum. 2. Further recommendations will be provided as inpatient. TRANSINT:[id number] Voice Confirmation ID: [id number] DOCUMENT ID: [id number] ROBERT SWANSON DO at 0659 CC: RAY FRAIRE MD and ANABELLA CANTU MD [id number] DICTATION DATE: 03/15/19 1131 COMPUTER SYSTEMS SUPPORT SPECIALIST: 03/15/19 1358 ADM IN [facility] [address] [place] [address]
[2019-03-20 09:58] LABS: HEMATOCRIT 30.5 % (36.0-48.0)
[2019-03-20 16:12] LABS: HEMATOCRIT 30.7 % (36.0-48.0); HEMOGLOBIN 10.3 g/dL (12-16)
[2019-03-21 00:14] LABS: HEMATOCRIT 27.4 % (36.0-48.0); HEMOGLOBIN 9.5 g/dL (12-16)
[2019-03-21 04:30] VITALS: BP 147/73
[2019-03-21 08:25] VITALS: BP 151/74
[2019-03-21 09:27] LABS: HEMATOCRIT 28.6 % (36.0-48.0); HEMOGLOBIN 9.5 g/dL (12-16)
[2019-03-21 09:40] LABS: INR 1.04 (0.85-1.17); PROTIME 13.1 SECONDS (11.6-15.0)
[2019-03-21 12:00] VITALS: BP 141/70
--- NOTE | 2019-03-21 15:12 | MORECARE ---
CASE MANAGEMENT DISCHARGE SUMMARY PATIENT: MENG XIE UNIT: [id number] ADM DATE: 03/15/19 AGE: 73 : 43 SEX: F ROOM/BED: D.1212 AUTHOR: BIPIN PABLO PHYSICIAN: REFERRING PHYSICIAN: ROBERT SWANSON DO DATE OF SERVICE: 03/21/19 Discharge Plan Patient Name: MENG XIE Facility: [facility]:[place] : 1945 Planned Disposition: Home Anticipated Discharge Date: Discharge Date: Expected LOS: Initial Reviewer: [email or web address] Initial Review Date: 03/21/2019 Generated: 03/21/19 4:12 pm DCPIA - Discharge Planning Initial Assessment Updated by [email or web address]: Eunice Escobar on 03/21/19 3:08 pm * Is the patient Alert and Oriented? Yes * How many steps to enter\exit or inside your home? * PCP Dr. Baljit Mills, * Pharmacy [facility] in [facility] mail order * Preadmission Environment Home with Family * ADLs Partial Dependent * Partial ADLs (Assistance needed) Bathing Dressing * Equipment Cane Elevated [place] Seat Grab Bars Oxygen Rolling Walker Shower Chair * Other Equipment Shower chair is built into shower Rollator Has home and portable O2 provided by [facility] * List name and contact numbers for known caregivers / representatives who currently or will assist patient after discharge: Jose Xie, spouse, , cell [phone] Antonio Xie, son * Verbal permission to speak to the caregivers and representatives has been obtained from the patient. Yes * Community resources currently utilized None * Additional services required to return to the preadmission environment? No * Can the patient safely return to the preadmission environment? Yes * Has this patient been hospitalized within the prior 30 days at any hospital? No Patient Name: MENG XIE Page [id number] at 1512 All edits/amendments must be made on the electronic document DICTATION DATE: 03/21/19 1512 NURSE TRANSITIONAL: KATALINA 03/21/191511 RPT#: [id number] DC DATE: STATUS: ADM IN [facility] [address] [place] [address] END OF REPORT
--- NOTE | 2019-03-21 15:26 | MORECARE ---
CASE MANAGEMENT DISCHARGE SUMMARY PATIENT: MENG XIE UNIT: [id number] ADM DATE: 03/15/19 AGE: 73 : 43 SEX: F ROOM/BED: D.1212 AUTHOR: BIPIN PABLO PHYSICIAN: REFERRING PHYSICIAN: ROBERT SWANSON DO DATE OF SERVICE: 03/21/19 Discharge Plan Patient Name: MENG XIE Facility: [facility]:[place] : 1945 Planned Disposition: Home Anticipated Discharge Date: Discharge Date: Expected LOS: Initial Reviewer: [email or web address] Initial Review Date: 03/21/2019 Generated: 03/21/19 4:26 pm Comments DCP- Discharge Planning Updated by [email or web address]: Eunice Escobar on 03/21/19 2:[address] Patient Name: MENG XIE Admission Status: Elective Accout number: [id number] Admission Date: 03-15-2019 : 1945 Admission Diagnosis:GASTROINTESTINAL HEMORRHAGE, UNSPECIFIED Attending: ROBERT SWANSON Current LOS: 6 Anticipated DC Date: Planned Disposition: Home Primary Insurance: MEDICARE A & B Discharge Planning Comments: After obtaining verbal consent, CM met with patient, her spouse-Jose Xie, and her son-Antonio Xie. Patient states her plan is to discharge to home where she lives with her . States she has home and portable oxygen through [employer]. States her home environment is safe. Spouse states she may need physical therapy at home. CM will discuss with physical therapist patient's progress with therapy and any possible therapy needs upon hospital DC. States her spouse will transport her home upon discharge. Discussed possible need for Eliquis upon hospital discharge. CM provided and explained 30 day free trial card for Eliquis. CM will call patient's prescription plan ([employer] Rx Plan PDP) to find out if Eliquis is covered by her insurance. CM will continue to follow and assist as needed with discharge planning. Director Of Capital Giving: Eunice Escobar DCPIA - Discharge Planning Initial Assessment Updated by [email or web address]: Eunice Escobar on 03/21/19 3:08 pm * Is the patient Alert and Oriented? Yes * How many steps to enter\exit or inside your home? * PCP Dr. Baljit Mills, * [facility] in [facility] mail order * Preadmission Environment Home with Family * ADLs Partial Dependent * Partial ADLs (Assistance needed) Bathing Dressing * Equipment Cane Elevated [place] Seat Grab Bars Oxygen Rolling Walker Shower Chair * Other Equipment Shower chair is built into shower Rollator Has home and [facility]2 [facility] * List name and contact numbers for known caregivers / representatives who currently or will assist patient after discharge: Jose Xie, spouse, , cell [phone] Antonio Xie, son * Verbal permission to speak to the caregivers and representatives has been obtained from the patient. Yes * Community resources currently utilized None * Additional services required to return to the preadmission environment? No * Can the patient safely return to the preadmission environment? Yes * Has this patient been hospitalized within the prior 30 days at any hospital? No Last DP export: 03/21/19 2:12 p Patient Name: MENG XIE Page [id number] at 1526 All edits/amendments must be made on the electronic document DICTATION DATE: 03/21/19 [facility] DIRECTOR: KATALINA 03/21/191525 RPT#: [id number] DC DATE: STATUS: ADM IN [facility] [address] [place] [address] END OF REPORT
[2019-03-21 16:00] VITALS: BP 148/62
--- NOTE | 2019-03-21 16:02 | MORECARE ---
CASE MANAGEMENT DISCHARGE SUMMARY PATIENT: MENG XIE UNIT: [id number] ADM DATE: 03/15/19 AGE: 73 : 43 SEX: F ROOM/BED: D.1212 AUTHOR: BEVDOC PHYSICIAN: REFERRING PHYSICIAN: ROBERT SWANSON DO DATE OF SERVICE: 03/21/19 Discharge Plan Patient Name: MENG XIE Facility: [facility]:[place] : 1945 Planned Disposition: Home Anticipated Discharge Date: Discharge Date: Expected LOS: Initial Reviewer: [email or web address] Initial Review Date: 03/21/2019 Generated: 03/21/19 5:02 pm Comments DCP- Discharge Planning Updated by [email or web address]: Eunice Escobar on 03/21/19 2:[address] CM obtained pricing information for patient r/t Eliquis 2.5 po bid. 30 day supply will cost $100.98. 90 day supply will cost $287.63. Patient states she would need to do some figuring to see if she could manage the cost of medication. CM provided patent 30 day free trial card that will cover 1st month's prescription. DCP- Discharge Planning Updated by [email or web address]: Eunice Escobar on 03/21/19 2:[address] Patient Name: MENG XIE Admission Status: Elective Accout number: [id number] Admission Date: 03-15-2019 : 1945 Admission Diagnosis:GASTROINTESTINAL HEMORRHAGE, UNSPECIFIED Attending: ROBERT SWANSON Current LOS: 6 Anticipated DC Date: Planned Disposition: Home Primary Insurance: MEDICARE A & B Discharge Planning Comments: After obtaining verbal consent, CM met with patient, her spouse-Jsoe Xie, and her son-Antonio Xie. Patient states her plan is to discharge to home where she lives with her . States she has home and portable oxygen through [employer]. States her home environment is safe. Spouse states she may need physical therapy at home. CM will discuss with physical therapist patient's progress with therapy and any possible therapy needs upon hospital DC. States her spouse will transport her home upon discharge. Discussed possible need for Eliquis upon hospital discharge. CM provided and explained 30 day free trial card for Eliquis. CM will call patient's prescription plan ([employer] Rx Plan PDP) to find out if Eliquis is covered by her insurance. CM will continue to follow and assist as needed with discharge planning. Sole Leveler: Eunice Escobar [facility] - Discharge Planning Initial Assessment Updated by [email or web address]: Eunice Escobar on 03/21/19 3:08 pm * Is the patient Alert and Oriented? Yes * How many steps to enter\exit or inside your home? * PCP Dr. Baljit Mills, * Pharmacy [facility] in [facility] mail order * Preadmission Environment Home with Family * ADLs Partial Dependent * Partial ADLs (Assistance needed) Bathing Dressing * Equipment Cane Elevated [place] Seat Grab Bars Oxygen Rolling Walker Shower Chair * Other Equipment Shower chair is built into shower Rollator Has home and portable O2 provided by [employer] * List name and contact numbers for known caregivers / representatives who currently or will assist patient after discharge: Jose Xie, spouse, , cell [phone] Antonio Xie, son * Verbal permission to speak to the caregivers and representatives has been obtained from the patient. Yes * Community resources currently utilized None * Additional services required to return to the preadmission environment? No * Can the patient safely return to the preadmission environment? Yes * Has this patient been hospitalized within the prior 30 days at any hospital? No Last DP export: 03/21/19 2:26 p Patient Name: MENG XIE Page [id number] at 1602 All edits/amendments must be made on the electronic document DICTATION DATE: 03/21/19 1602 [employer] HAZMAT TANKER DRIVER: KATALNIA 03/21/19 1602 RPT#: [id number] DC DATE: STATUS: ADM IN [facility] [address] [place] [address] END OF REPORT
[2019-03-21 20:00] VITALS: BP 117/59
[2019-03-22 00:14] VITALS: BP 138/60
[2019-03-22 04:29] VITALS: BP 139/60
[2019-03-22 07:42] LABS: BASOPHILS 0.3 % (0-2); EOSINOPHILS 3.2 % (0-7); HEMATOCRIT 32.6 % (36.0-48.0); IMMATURE GRANULOCYTES 1.9 % (0-5); LYMPHOCYTES 18.8 % (15-50); MCH 30.5 pg (26.0-34.0); MCHC 33.7 g/dL (31.0-37.0); MCV 90.3 fL (80.0-100.0); MONOCYTES 10.4 % (2-11); NEUTROPHILS 65.4 % (40-80); RBC 3.61 10x6/uL (4.00-5.40); RDW 15.6 % (11.5-14.5); WBC 6.2 10x3/uL (4.8-10.8)
[2019-03-22 07:43] LABS: PLATELET COUNT 189 10x3/uL (130-400)
[2019-03-22 09:44] VITALS: BP 142/64
--- NOTE | 2019-03-22 12:27 | MORECARE ---
CASE MANAGEMENT DISCHARGE SUMMARY PATIENT: MENG XIE UNIT: [id number] ADM DATE: 03/15/19 AGE: 73 : 43 SEX: F ROOM/BED: D.1212 AUTHOR: BEVDOC PHYSICIAN: REFERRING PHYSICIAN: ROBERT SWANSON DO DATE OF SERVICE: 03/22/19 Discharge Plan Patient Name: MENG XIE Facility: [facility]:[place] : 1945 Planned Disposition: Home Anticipated Discharge Date: Discharge Date: Expected LOS: Initial Reviewer: [email or web address] Initial Review Date: 03/21/2019 Generated: 03/22/19 1:27 pm Comments DCP- Discharge Planning Updated by [email or web address]: Eunice Escobar on 03/21/19 2:[address] CM obtained pricing information for patient r/t Eliquis 2.5 po bid. 30 day supply will cost $100.98. 90 day supply will cost $287.63. Patient states she would need to do some figuring to see if she could manage the cost of medication. CM provided patent 30 day free trial card that will cover 1st month's prescription. DCP- Discharge Planning Updated by [email or web address]: Eunice Escobar on 03/21/19 2:[address] Patient Name: MENG XIE Admission Status: Elective Accout number: [id number] Admission Date: 03-15-2019 : 1945 Admission Diagnosis:GASTROINTESTINAL HEMORRHAGE, UNSPECIFIED Attending: ROBERT SWANSON Current LOS: 6 Anticipated DC Date: Planned Disposition: Home Primary Insurance: MEDICARE A & B Discharge Planning Comments: After obtaining verbal consent, CM met with patient, her spouse-Jose Xie, and her son-Antonio Xie. Patient states her plan is to discharge to home where she lives with her . States she has home and portable oxygen through [employer]. States her home environment is safe. Spouse states she may need physical therapy at home. CM will discuss with physical therapist patient's progress with therapy and any possible therapy needs upon hospital DC. States her spouse will transport her home upon discharge. Discussed possible need for Eliquis upon hospital discharge. CM provided and explained 30 day free trial card for Eliquis. CM will call patient's prescription plan ([employer] Rx Plan PDP) to find out if Eliquis is covered by her insurance. CM will continue to follow and assist as needed with discharge planning. Patient Relations Director: Eunice Escobar DCPIBobby - Discharge Planning Initial Assessment Updated by [email or web address]: Eunice Escobar on 03/21/19 3:08 pm * Is the patient Alert and Oriented? Yes * How many steps to enter\exit or inside your home? * PCP Dr. Baljit Mills, * Pharmacy [facility] in [facility] mail order * Preadmission Environment Home with Family * ADLs Partial Dependent * Partial ADLs (Assistance needed) Bathing Dressing * Equipment Cane Elevated [place] Seat Grab Bars Oxygen Rolling Walker Shower Chair * Other Equipment Shower chair is built into shower Rollator Has home and portable O2 provided by [employer] * List name and contact numbers for known caregivers / representatives who currently or will assist patient after discharge: Jose Xie, spouse, , cell [phone] Antonio Xie, son * Verbal permission to speak to the caregivers and representatives has been obtained from the patient. Yes * Community resources currently utilized None * Additional services required to return to the preadmission environment? No * Can the patient safely return to the preadmission environment? Yes * Has this patient been hospitalized within the prior 30 days at any hospital? No External Providers External Provider: OTHER-OTHER Next Contact Date: Service Request Date: Service Type: Resolution: Reviewer: Comments: Last DP export: 03/21/19 3:02 p Patient Name: MENG XIE Page [phone] at 1227 All edits/amendments must be made on the electronic document DICTATION DATE: 03/22/19 1227 PAROLE OFFICER: KATALINA 03/22/19 122 RPT#: [id number] [place] DATE: STATUS: ADM IN [facility] [address] [place] [address] END OF REPORT
--- NOTE | 2019-03-22 12:35 | MORECARE ---
CASE MANAGEMENT DISCHARGE SUMMARY PATIENT: MENG XIE UNIT: [id number] ADM DATE: 03/15/19 AGE: 73 : 43 SEX: F ROOM/BED: D.1212 AUTHOR: BEV,DOC PHYSICIAN: REFERRING PHYSICIAN: ROBERT SWANSON DO DATE OF SERVICE: 03/22/19 Discharge Plan Patient Name: MENG XIE Facility: [facility]:[place] : 1945 Planned Disposition: Home Anticipated Discharge Date: Discharge Date: Expected LOS: Initial Reviewer: [email or web address] Initial Review Date: 03/21/2019 Generated: 03/22/19 1:34 pm Comments DCP- Discharge Planning Updated by [email or web address]: Eunice Escobar on 03/22/19 11:[address] CM met with patient in the presence of to finalize discharge planning / needs. Patient's spouse has Eliquis 30 free trial card and verbalized understanding how to activate and use card. Family is aware of how much Eliquis will cost patient monthly. They plan to discuss senior living anticoagulant therapy with PCP, Dr. Mills. Patient is requesting outpatient physical therapy through [facility]" by [facility] in [place]. CM called Dr. Mills's office spoke with nurse, Erika. She obtained order from Dr. Mills for outpatient physical therapy and is going to fax the order to [facility]. CM received scheduled follow up appointment for patient with Dr. Mills for 03/28/19 at 10:30. CM called [facility] and spoke with Alina. Informed her of referral, Erika faxing her the order. Received appointment for 04/03/19 10:30. Faxed records as requested. CM informed patient of scheduled appointments. CM explained and served DC IMM. Spouse will transport patient home upon discharge. CM will continue to follow and assist as needed with discharge planning. DCP- Discharge Planning Updated by [email or web address]: Eunice Escobar on 03/21/19 2:[address] CM obtained pricing information for patient r/t Eliquis 2.5 po bid. 30 day supply will cost $100.98. 90 day supply will cost $287.63. Patient states she would need to do some figuring to see if she could manage the cost of medication. CM provided patent 30 day free trial card that will cover 1st month's prescription. DCP- Discharge Planning Updated by [email or web address]: Eunice Escobar on 03/21/19 2:[address] Patient Name: MENG XIE Admission Status: Elective Accout number: [id number] Admission Date: 03-15-2019 : 1945 Admission Diagnosis:GASTROINTESTINAL HEMORRHAGE, UNSPECIFIED Attending: ROBERT SWANSON Current LOS: 6 Anticipated DC Date: Planned Disposition: Home Primary Insurance: MEDICARE A & B Discharge Planning Comments: After obtaining verbal consent, CM met with patient, her spouse-Jose Xie, and her son-Antonio Xie. Patient states her plan is to discharge to home where she lives with her . States she has home and portable oxygen through [employer]. States her home environment is safe. Spouse states she may need physical therapy at home. CM will discuss with physical therapist patient's progress with therapy and any possible therapy needs upon hospital DC. States her spouse will transport her home upon discharge. Discussed possible need for Eliquis upon hospital discharge. CM provided and explained 30 day free trial card for Eliquis. CM will call patient's prescription plan ([employer] Rx Plan PDP) to find out if Eliquis is covered by her insurance. CM will continue to follow and assist as needed with discharge planning. Government Clerk: Eunice Escobar DCPIA - Discharge Planning Initial Assessment Updated by [email or web address]: Eunice Escobar on 03/21/19 3:08 pm * Is the patient Alert and Oriented? Yes * How many steps to enter\\exit or inside your home? * PCP Dr. Baljit Mills, * Pharmacy [facility] in [facility] mail order * Preadmission Environment Home with Family * ADLs Partial Dependent * Partial ADLs (Assistance needed) Bathing Dressing * Equipment Cane Elevated [place] Seat Grab Bars Oxygen Rolling Walker Shower Chair * Other Equipment Shower chair is built into shower Rollator Has home and portable O2 provided by [employer] * List name and contact numbers for known caregivers / representatives who currently or will assist patient after discharge: Jose Xie, spouse, , cell [phone] Antonio Xie, son * Verbal permission to speak to the caregivers and representatives has been obtained from the patient. Yes * Community resources currently utilized None * Additional services required to return to the preadmission environment? No * Can the patient safely return to the preadmission environment? Yes * Has this patient been hospitalized within the prior 30 days at any hospital? No Last DP export: 03/22/19 11:27 a Patient Name: MENG XIE Page [phone] at 1235 All edits/amendments must be made on the electronic document DICTATION DATE: 03/22/19 1234 GAS PUMPING STATION HELPER: KATALINA 03/22/19 1234 RPT#: [id number] DC DATE: STATUS: ADM IN [facility] [address] [place] [address] END OF REPORT
[2019-03-22] MEDS ORDERED: ELIQUIS5 MG PO (12:36)
[2019-03-22 13:33] VITALS: BP 125/101
[2019-03-22 16:33] VITALS: Ht 157.5 cm; Wt 143.0 kg
--- NOTE | 2019-03-22 17:26 | MORECARE ---
CASE MANAGEMENT DISCHARGE SUMMARY PATIENT: MENG XIE UNIT: [id number] ADM DATE: 03/15/19 AGE: 73 : 41 SEX: F ROOM/BED: D.1212 AUTHOR: BEV,DOC PHYSICIAN: REFERRING PHYSICIAN: ROBERT SWANSON DO DATE OF SERVICE: 03/22/19 Discharge Plan Patient Name: MENG XIE Facility: [facility]:[place] : 1945 Planned Disposition: Home Anticipated Discharge Date: Discharge Date: 03/22/2019 Expected LOS: Initial Reviewer: [email or web address] Initial Review Date: 03/21/2019 Generated: 03/22/19 6:26 pm Comments DCP- Discharge Planning Updated by [email or web address]: Eunice Escobar on 03/22/19 11:[address] CM met with patient in the presence of to finalize discharge planning / needs. Patient's spouse has Eliquis 30 free trial card and verbalized understanding how to activate and use card. Family is aware of how much Eliquis will cost patient monthly. They plan to discuss truck terminal manager anticoagulant therapy with PCP, Dr. Mills. Patient is requesting outpatient physical [facility] through [facility] in [place]. CM called Dr. Mills's office spoke with nurse, Erika. She obtained order from Dr. Mills for outpatient physical therapy and is going to fax the order to [facility]. CM received scheduled follow up appointment for patient with Dr. Mills for 03/28/19 at 10:30. CM called [facility] and spoke with Alina. Informed her of referral, Erika faxing her the order. Received appointment for 04/03/19 10:30. Faxed records as requested. CM informed patient of scheduled appointments. CM explained and served DC IMM. Spouse will transport patient home upon discharge. CM will continue to follow and assist as needed with discharge planning. DCP- Discharge Planning Updated by [email or web address]: Eunice Escobar on 03/21/19 2:[address] CM obtained pricing information for patient r/t Eliquis 2.5 po bid. 30 day supply will cost $100.98. 90 day supply will cost $287.63. Patient states she would need to do some figuring to see if she could manage the cost of medication. CM provided patent 30 day free trial card that will cover 1st month's prescription. DCP- Discharge Planning Updated by [email or web address]: Eunice Escobar on 03/21/19 2:[address] Patient Name: MENG XIE Admission Status: Elective Accout number: [id number] Admission Date: 03-15-2019 : 1945 Admission Diagnosis:GASTROINTESTINAL HEMORRHAGE, UNSPECIFIED Attending: ROBERT SWANSON Current LOS: 6 Anticipated DC Date: Planned Disposition: Home Primary Insurance: MEDICARE A & B Discharge Planning Comments: After obtaining verbal consent, CM met with patient, her spouse-Jose Xie, and her son-Antonio Xie. Patient states her plan is to discharge to home where she lives with her . States she has home and portable oxygen through [employer]. States her home environment is safe. Spouse states she may need physical therapy at home. CM will discuss with physical therapist patient's progress with therapy and any possible therapy needs upon hospital DC. States her spouse will transport her home upon discharge. Discussed possible need for Eliquis upon hospital discharge. CM provided and explained 30 day free trial card for Eliquis. CM will call patient's prescription plan ([employer] Rx Plan PDP) to find out if Eliquis is covered by her insurance. CM will continue to follow and assist as needed with discharge planning. Decorator Consultant: Eunice Escobar DCPIA - Discharge Planning Initial Assessment Updated by [email or web address]: Eunice Escobar on 03/21/19 3:08 pm * Is the patient Alert and Oriented? Yes * How many steps to enter\\exit or inside your home? * PCP Dr. Baljit Mills, * Pharmacy [facility] in [facility] mail order * Preadmission Environment Home with Family * ADLs Partial Dependent * Partial ADLs (Assistance needed) Bathing Dressing * Equipment Cane Elevated [place] Seat Grab Bars Oxygen Rolling Walker Shower Chair * Other Equipment Shower chair is built into shower Rollator Has home and portable O2 provided by [employer] * List name and contact numbers for known caregivers / representatives who currently or will assist patient after discharge: Jose Xie, spouse, , cell [phone] Antonio Xie, son * Verbal permission to speak to the caregivers and representatives has been obtained from the patient. Yes * Community resources currently utilized None * Additional services required to return to the preadmission environment? No * Can the patient safely return to the preadmission environment? Yes * Has this patient been hospitalized within the prior 30 days at any hospital? No Coverage Notice Reviewer: [id number] Herve Escobar Notice Issued Date-Time: 03/22/2019 12:40 Notice Type: IM Discharge Notice Notice Delivered To: Patient Relationship to Patient: Self Chief Lifestyle Officer Name: Delivery Method: HAND - Hand Delivered Anh Days: Prior Verbal Notification: Recipient Understood Notice: Yes Recipient Signature: Yes Med Rec Note Co-signed by Attending: Coverage Notice Comment: Last DP export: 03/22/19 11:34 a Patient Name: MENG XIE Page [id number] at 1726 All edits/amendments must be made on the electronic document DICTATION DATE: 03/22/191725 PSYCHOLOGY TECHNICIAN: KATALINA 03/22/191725 RPT#: [id number] DC DATE:03/22/19 STATUS: DIS IN [facility] [address] [place] [address] END OF REPORT
== END 2019-03-22 15:00 | disposition home or self-care (01) | DRG 907 ==
LOC: D.OPS 07:11 → D.M3 11:23 → D.ICU 11:23 → D.M3 03-20 16:20
PROVIDERS: Anesthesiology; General Practice; Internal Medicine Gastroenterology; Radiology Vascular & Interventional Radiology; Surgery; ADMIT Internal Medicine Gastroenterology; ATTEND Internal Medicine Gastroenterology
PROC: 05H633Z Insertion of Infusion Device into Left Subclavian Vein, Percutaneous Approach (ICD-10-PCS; 2019-03-15)
PROC: B30 Imaging, Upper Arteries, Plain Radiography (ICD-10-PCS; 2019-03-15)
PROC: 0DB78ZZ Excision of Stomach, Pylorus, Via Natural or Artificial Opening Endoscopic (ICD-10-PCS; 2019-03-15)
PROC: 0W3P8ZZ Control Bleeding in Gastrointestinal Tract, Via Natural or Artificial Opening Endoscopic (ICD-10-PCS; 2019-03-15)
PROC: 0DB98ZX Excision of Duodenum, Via Natural or Artificial Opening Endoscopic, Diagnostic (ICD-10-PCS; 2019-03-15)
PROC: 5A1945Z Respiratory Ventilation, 24-96 Consecutive Hours (ICD-10-PCS; 2019-03-15)
PROC: 0BH17EZ Insertion of Endotracheal Airway into Trachea, Via Natural or Artificial Opening (ICD-10-PCS; 2019-03-15)
PROC: 04L33DZ Occlusion of Hepatic Artery with Intraluminal Device, Percutaneous Approach (ICD-10-PCS; principal; 2019-03-15 09:15)
PROC: 0DC48ZZ Extirpation of Matter from Esophagogastric Junction, Via Natural or Artificial Opening Endoscopic (ICD-10-PCS; 2019-03-17)
DX: K91.61 Intraoperative hemorrhage and hematoma of a digestive system organ or structure complicating a digestive system procedure (principal); J95.821 Acute postprocedural respiratory failure; K92.2 Gastrointestinal hemorrhage, unspecified; D62 Acute posthemorrhagic anemia; J98.11 Atelectasis; I10 Essential (primary) hypertension; E11.9 Type 2 diabetes mellitus without complications; K31.7 Polyp of stomach and duodenum; K21.0 Gastro-esophageal reflux disease with esophagitis; K22.710 Barrett's esophagus with low grade dysplasia; Y83.8 Other surgical procedures as the cause of abnormal reaction of the patient, or of later complication, without mention of misadventure at the time of the procedure; E03.9 Hypothyroidism, unspecified; D69.6 Thrombocytopenia, unspecified; E78.5 Hyperlipidemia, unspecified; J30.9 Allergic rhinitis, unspecified; J44.9 Chronic obstructive pulmonary disease, unspecified

== ENCOUNTER 2019-06-07 11:59 | Day surgery (SDC) | payer MEDICARE ==
[~2019-06-07] VITALS: Ht 157.5 cm; Wt 131.8 kg
--- NOTE | ~2019-06-07 | OP ---
PATIENT NAME: EMNG XIE MEDICAL RECORD: [id number] :41 LOCATION:[facility] ADMISSION DATE: SURGEON: ROBERT SWANSON DO DATE OF OPERATION: 06/07/2019 PROCEDURE: EGD with polypectomy and cauterization. INDICATION FOR PROCEDURE: History of gastric polyp. SCOPE: Olympus video gastroscope. MEDICATIONS: Propofol 350 mg IV per anesthesia. ESTIMATED BLOOD LOSS: Minimal. COMPLICATIONS: None. FINDINGS: Informed consent was given. The patient was made comfortable with the above medication. After reaching an adequate level of sedation by slow IV push, the patient was placed on her left side. The endoscope was advanced under direct visualization through the mouth to the second portion of the duodenum with ease. The esophagus appeared normal. At the GE junction, there was evidence of LA class A reflux-induced esophagitis. The endoscope was advanced beyond the GE junction in the stomach and retroflexed to view the cardia, where a small sliding hiatal hernia was present. There were numerous diminutive fundic gland polyps in the fundus of the stomach. In the antrum and prepyloric region, there were 3 separate polyps that were evaluated. One was a residual base of a previously removed fundic gland polyp right at the prepylorus. This site was cauterized using gold probe and hot snare. Just proximal to this, in the antrum, there was a flat fundic gland polyp, which was cauterized using a gold probe and a hot snare. Just proximal of this, in the stomach body, was another fundic gland polyp, which was removed using a hot snare. This polyp was removed with a net and withdrawn from the patient. The endoscope was withdrawn from the patient. The patient tolerated the procedure well and there were no complications. IMPRESSIONS: Multiple fundic gland gastric polyps. The 3 main polyps were large and located in the antrum. One was snared and 2 were cauterized using gold probe and hot snare. PLAN AND RECOMMENDATIONS: 1. Discharge home when recovery parameters are met. 2. Follow up biopsy specimen results. 3. GERD diet and reflux precautions. 4. Continue current medications. 5. Recall EGD in one year's time for reevaluation of polyps. TRANSINT:[id number] Voice Confirmation ID: [id number] DOCUMENT ID: [id number] OPERATIVE REPORT [id number] MENG XIE ROBERT SWANSON DO CC: [id number] DICTATION DATE: 06/07/19 1601 PRODUCTION LABORER: 06/07/[address] [facility] [place] 06/07/19 [facility] [address] [id number]
[~2019-06-07 11:59] MED LIST changes: +COUMADIN2.5 MG PO; +ELIQUIS5 MG PO; +LOPRESSOR25 MG PO
[2019-06-07 12:30] LABS: HEMATOCRIT 41.6 % (36.0-48.0); HEMOGLOBIN 13.9 g/dL (12-16); MCH 32.7 pg (26.0-34.0); MCHC 33.4 g/dL (31.0-37.0); MCV 97.9 fL (80.0-100.0); MEAN PLATELET VOLUME 10.4 fL (7.4-10.4); RBC 4.25 10x6/uL (4.00-5.40); RDW 13.9 % (11.5-14.5); WBC 5.2 10x3/uL (4.8-10.8)
[2019-06-07 12:38] LABS: ANION GAP 7.5 mmol/L (8-16); CALCIUM 9.7 mg/dL (8.5-10.1); CARBON DIOXIDE 31.4 mmol/L (21.0-32.0); POTASSIUM - SERUM 3.9 mmol/L (3.5-5.1)
[2019-06-07 12:39] LABS: APTT 34.4 SECONDS (22.8-39.4); INR 0.95 (0.85-1.17); PROTIME 12.2 SECONDS (11.6-15.0)
[2019-06-07] MEDS ORDERED: ALENDRONATE SOD35 MG PO (14:18)
[2019-06-07] MEDS ORDERED: VITAMIN D31000 UNI2 PO (14:19)
[2019-06-07] MEDS ORDERED: LOVENOX40 MG/0.4 SC (14:19)
[2019-06-07 14:21] VITALS: BP 136/80; Ht 157.5 cm; Wt 131.8 kg
--- NOTE | 2019-06-07 16:11 | NUR ---
[id number] DR MARR TALKING WITH PT AND FAMILY
== END 2019-06-07 16:50 | disposition home or self-care (01) ==
LOC: D.OPS 11:59
PROVIDERS: Anesthesiology; ATTEND Internal Medicine Gastroenterology
DX: K31.7 Polyp of stomach and duodenum (principal); K21.0 Gastro-esophageal reflux disease with esophagitis; K44.9 Diaphragmatic hernia without obstruction or gangrene; Z01.812 Encounter for preprocedural laboratory examination